=== PATIENT | male | born 1995 | race Caucasian/White ===

== ENCOUNTER 2019-05-17 11:43 | Emergency (ER) | payer BC ==
[2019-05-17 12:03] VITALS: BP 124/75
--- NOTE | 2019-05-17 12:08 | UC ---
Skin Complaint HPI - HPI Summary HPI Summary: 23-year-old male with a paronychia of his distal left middle finger over the past 2-3 days. 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 - History of Current Complaint Chief Complaint: UCUpperExtremity Time Seen by Provider: 05/17/19 11:52 Stated Complaint: LT MIDDLE FINGER INFECTION Hx Obtained From: Patient Onset/Duration: Gradual Onset, Lasting Days Timing: Constant Onset Severity: Mild Current Severity: Mild Pain Intensity: 0 Location: Other - Distal left middle finger. Character: Swelling, Redness, Painful Aggravating Factor(s): Touch Alleviating Factor(s): Nothing Associated Signs & Symptoms: Positive: Negative - Allergy/Home Medications Allergies/Adverse Reactions: Allergies Allergy/AdvReac Type Severity Reaction Status Date / Time No Known Allergies Allergy Verified 05/17/19 11:59 Home Medications: Home Medications Cephalexin CAP* [Keflex 500 CAP*] 500 mg PO TID 10 Days #30 cap 05/17/19 [Rx] DULoxetine DR CAP* [Cymbalta CAP*] 60 mg PO DAILY 05/17/19 [History Confirmed ] Fexofenadine (NF) [Mary (NF)] 60 mg PO 05/17/19 [History] PMH/Surg Hx/FS Hx/Imm Hx Previously Healthy: Yes Psychological History: Anxiety - Surgical History Surgical History: Yes Surgery Procedure, Year, and Place: appendectomy 2007 - Family History Known Family History: Positive: Unknown - Social History Occupation: Employed Full-time Alcohol Use: Occasionally Substance Use Type: None Smoking Status (MU): Never Smoked Tobacco Review of Systems All Other Systems Reviewed And Are Negative: Yes Constitutional: Negative: Fever Skin: Positive: Other - Distal left middle finger is swollen with redness. He has noted a minimal amount of yellowish drainage. No history of MRSA. Musculoskeletal: Positive: Other: - Mostly pain on palpation in the area of concern. Is Patient Immunocompromised?: No Physical Exam Triage Information Reviewed: Yes Appearance: Well-Appearing, No Pain Distress, Well-Nourished Vital Signs: Initial Vital Signs Temp 98.1 F 05/17/19 12:00 Pulse 82 05/17/19 12:00 Resp 16 05/17/19 12:00 BP 124/75 05/17/19 12:00 Pulse Ox 98 05/17/19 12:00 Vital Signs Reviewed: Yes Musculoskeletal Exam: Normal Musculoskeletal: Positive: Strength Intact, ROM Intact, Other: - Swelling and erythema distal left middle finger, no active drainage. Good peripheral pulses , neuro sensation capillary refill. Full range of motion. Neurological Exam: Normal Psychological Exam: Normal Skin: Positive: Other - See above notes. Course/Dx - Course Course Of Treatment: Patient is comfortable here. - Diagnoses Provider Diagnosis: Paronychia of left middle finger Discharge ED - Sign-Out/Discharge Documenting (check all that apply): Patient Departure All imaging exams completed and their final reports reviewed: No Studies - Discharge Plan Condition: Good Disposition: HOME Prescriptions: Cephalexin CAP* [Keflex 500 CAP*] 500 mg PO TID 10 Days #30 cap Patient Education Materials: Paronychia (ED) Referrals: [facility] [Outside] No Primary Care Phys,NOPCP [Primary Care Provider] - Additional Instructions: Warm salt water soaks 4-6 times a day for 20 minutes each time, elevate as much as possible, take ibuprofen every 8 hours and may alternate with Tylenol every 4 hours for pain. If you develop increasing redness increasing finger swelling or red streaks up your hand or arm then you're to contact your primary care provider however if you are running a fever with those symptoms you are to go to the emergency room for further treatment. - Billing Disposition and Condition Condition: GOOD Disposition: Home
== END 2019-05-17 12:16 | disposition home or self-care (01) ==
LOC: UCCORT 11:43
DX: L03.012 Cellulitis of left finger (principal); F41.9 Anxiety disorder, unspecified; Z79.899 Other long term (current) drug therapy
CPT/HCPCS: 99202; G0463